=== PATIENT | male | born 1985 | race Two or more races ===

== ENCOUNTER 2020-02-03 21:34 | Emergency (ER) | payer MEDICAID ==
[~2020-02-03] VITALS: Ht 182.9 cm; Wt 79.4 kg
[2020-02-03 21:56] VITALS: BP 121/94
[2020-02-03] MEDS ORDERED: MORPHINE SULFATE INJ 4 MG/ML DISP.SYRIN ONE (22:44)
[2020-02-03] MEDS ORDERED: ONDANSETRON 4 MG TAB.RAPDIS ONE (22:44)
[2020-02-03] MEDS: MORPHINE SULFATE INJ 2 MG/ML DISP.SYRIN IM ONE (22:53)
[2020-02-03] MEDS: ONDANSETRON 4 MG TAB.RAPDIS SL ONE (22:53)
== END 2020-02-03 23:32 | disposition home or self-care (01) ==
LOC: ER 21:39
DX: M54.41 Lumbago with sciatica, right side (principal); Z88.8 Allergy status to other drugs, medicaments and biological substances; Z88.6 Allergy status to analgesic agent
CPT/HCPCS: 72110; 96372; 99283; J2270; Q0162

== ENCOUNTER 2020-05-08 02:39 | Emergency (ER) | payer SELFPAY ==
[~2020-05-08] VITALS: Ht 182.9 cm; Wt 77.1 kg
[2020-05-08 03:01] VITALS: BP 132/68
== END 2020-05-08 03:12 | disposition home or self-care (01) ==
LOC: ER 02:44
DX: M54.41 Lumbago with sciatica, right side (principal); Z88.6 Allergy status to analgesic agent; Z88.8 Allergy status to other drugs, medicaments and biological substances; W01.0XXA Fall on same level from slipping, tripping and stumbling without subsequent striking against object, initial encounter; Y93.89 Activity, other specified; Y92.89 Other specified places as the place of occurrence of the external cause; Y99.8 Other external cause status